=== PATIENT | female | born 1945 | race Caucasian/White ===

== ENCOUNTER → 2017-01-03 | Outpatient (CLI) | payer MEDICARE ==
--- NOTE | 2017-01-04 09:34 | MM ---
Reason for exam: screening (asymptomatic). Last mammogram was performed 1 year and 1 month ago. History: Patient is postmenopausal and has history of endometrial cancer at age 32. Took estrogen for 5 years beginning at age 53. Physical Findings: A clinical breast exam by your physician is recommended on an annual basis and results should be correlated with mammographic findings. MG Screening Mammo w CAD Bilateral CC and MLO view(s) were taken. Prior study comparison: December 04, 2015, bilateral MG screening mammo w CAD. August 27, 2014, bilateral MG diagnostic mammo w CAD RUBY. June 29, 2013, bilateral digital screening mammo w/CAD. The breast tissue is heterogeneously dense. This may lower the sensitivity of mammography. Finding: There are occasional typically benign round calcifications in both breasts. There is no discrete abnormality. ASSESSMENT: Benign, BI-RAD 2 RECOMMENDATION: Routine screening mammogram of both breasts in 1 year.
== END | disposition home or self-care (01) ==
LOC: RADMAMWWP 08:21
PROVIDERS: ATTEND Family Medicine
DX: Z12.31 Encounter for screening mammogram for malignant neoplasm of breast (principal)

== ENCOUNTER → 2018-01-04 | Outpatient (CLI) | payer MEDICARE ==
--- NOTE | 2018-01-06 07:58 | MM ---
Reason for exam: screening (asymptomatic). Last mammogram was performed 1 year ago. History: Patient is postmenopausal and has history of endometrial cancer at age 32. Took estrogen for 5 years beginning at age 53. Physical Findings: A clinical breast exam by your physician is recommended on an annual basis and results should be correlated with mammographic findings. MG Screening Mammo w CAD Bilateral CC and MLO view(s) were taken. Prior study comparison: January 03, 2017, bilateral MG screening mammo w CAD. December 04, 2015, bilateral MG screening mammo w CAD. The breast tissue is heterogeneously dense. This may lower the sensitivity of mammography. Finding: There is a 4 mm equal density (isodense), obscured round mass located 6 cm from the nipple in the inner quadrant, middle position of the left breast on CC view. New finding since January 03, 2017 and December 04, 2015. ASSESSMENT: Incomplete: need additional imaging evaluation, BI-RAD 0 RECOMMENDATION: Special view mammogram of the left breast. If lesion persists on supplemental views, image directed ultrasound is recommended. [facility] will attempt to contact patient to return for supplemental views and ultrasound if indicated.
== END | disposition home or self-care (01) ==
LOC: RADMAMWWP 09:58
PROVIDERS: ATTEND Family Medicine
DX: Z12.31 Encounter for screening mammogram for malignant neoplasm of breast (principal)
CPT/HCPCS: 77067

== ENCOUNTER → 2018-01-18 | Outpatient (CLI) | payer MEDICARE ==
--- NOTE | 2018-01-19 08:28 | MM ---
Reason for exam: additional evaluation requested from abnormal screening. Last mammogram was performed less than 1 month ago. History: Patient is postmenopausal and has history of endometrial cancer at age 32. Took estrogen for 5 years beginning at age 53. Physical Findings: Nurse did not find any significant physical abnormalities on exam. MG Work Up Mamm w CAD LT Spot compression CC and LM view(s) were taken of the left breast. Prior study comparison: January 04, 2018, bilateral MG screening mammo w CAD. January 03, 2017, bilateral MG screening mammo w CAD. December 04, 2015, bilateral MG screening mammo w CAD. Nodular area corresponds to skin lesion on repeat views. These results were verbally communicated with the patient and result sheet given to the patient on 01/18/18. ASSESSMENT: Benign, BI-RAD 2 RECOMMENDATION: Return to routine screening mammogram schedule for both breasts.
== END | disposition home or self-care (01) ==
LOC: RADMAMWWP 13:06
PROVIDERS: ATTEND Family Medicine
DX: R92.8 Other abnormal and inconclusive findings on diagnostic imaging of breast (principal)
CPT/HCPCS: 77065

== ENCOUNTER → 2019-02-02 | Outpatient (CLI) | payer MEDICARE ==
--- NOTE | 2019-02-07 08:53 | MM ---
Reason for exam: screening (asymptomatic). Last mammogram was performed 1 year ago. History: Patient is postmenopausal. Took estrogen for 5 years beginning at age 53. Physical Findings: A clinical breast exam by your physician is recommended on an annual basis and results should be correlated with mammographic findings. MG Screening Mammo w CAD Bilateral CC and MLO view(s) were taken. Prior study comparison: January 18, 2018, left breast MG work up mamm w CAD LT. January 04, 2018, bilateral MG screening mammo w CAD. The breast tissue is heterogeneously dense. This may lower the sensitivity of mammography. New central focal asymmetry right breast posterior depth. ASSESSMENT: Incomplete: need additional imaging evaluation, BI-RAD 0 RECOMMENDATION: Special view mammogram of the right breast. (3D) If lesion persists on supplemental views, image directed ultrasound is recommended. [facility] will attempt to contact patient to return for supplemental views and ultrasound if indicated.
== END | disposition home or self-care (01) ==
LOC: RADMAMWWP 11:59
PROVIDERS: ATTEND Family Medicine
DX: Z12.31 Encounter for screening mammogram for malignant neoplasm of breast (principal); Z80.3 Family history of malignant neoplasm of breast
CPT/HCPCS: 77067

== ENCOUNTER → 2019-02-22 | Outpatient (CLI) | payer MEDICARE ==
--- NOTE | 2019-02-22 11:27 | MM ---
Reason for exam: additional evaluation requested from abnormal screening. Last mammogram was performed 1 month ago. History: Patient is postmenopausal. Took estrogen for 5 years beginning at age 53. Physical Findings: Nurse did not find any significant physical abnormalities on exam. MG Work Up Mamm w CAD RT Spot compression CC, spot compression MLO, and LM view(s) were taken of the right breast. Prior study comparison: February 02, 2019, bilateral MG screening mammo w CAD. January 18, 2018, left breast MG work up mamm w CAD LT. There is no discrete abnormality including area of concern. These results were verbally communicated with the patient and result sheet given to the patient on 02/22/19. ASSESSMENT: Probably benign, BI-RAD 3 RECOMMENDATION: Follow-up diagnostic mammogram of the right breast in 6 months.
== END | disposition home or self-care (01) ==
LOC: RADMAMWWP 10:28
PROVIDERS: ATTEND Family Medicine
DX: R92.8 Other abnormal and inconclusive findings on diagnostic imaging of breast (principal)
CPT/HCPCS: 77065

== ENCOUNTER → 2020-04-23 | Outpatient (CLI) | payer MEDICARE ==
--- NOTE | 2020-04-24 09:27 | MM ---
Reason for exam: screening (asymptomatic). Last mammogram was performed 1 year and 2 months ago. History: Patient is postmenopausal. Took estrogen for 5 years beginning at age 53. Physical Findings: A clinical breast exam by your physician is recommended on an annual basis and results should be correlated with mammographic findings. MG Screening Mammo w CAD Bilateral CC and MLO view(s) were taken. Prior study comparison: February 22, 2019, right breast MG work up mamm w CAD RT. February 02, 2019, bilateral MG screening mammo w CAD. There are scattered fibroglandular densities. No significant changes when compared with prior studies. ASSESSMENT: Benign, BI-RAD 2 RECOMMENDATION: Routine screening mammogram of both breasts in 1 year.
== END | disposition home or self-care (01) ==
LOC: RADMAMWWP 16:37
PROVIDERS: ATTEND Family Medicine
DX: Z12.31 Encounter for screening mammogram for malignant neoplasm of breast (principal)
CPT/HCPCS: 77067

== ENCOUNTER → 2021-06-12 | Outpatient (CLI) | payer MEDICARE ==
--- NOTE | 2021-06-15 12:22 | MM ---
Reason for exam: screening (asymptomatic). Last mammogram was performed 1 year and 2 months ago. History: Patient is postmenopausal. Took estrogen for 5 years beginning at age 53. Physical Findings: A clinical breast exam by your physician is recommended on an annual basis and results should be correlated with mammographic findings. MG Screening Mammo w CAD Bilateral CC and MLO view(s) were taken. Prior study comparison: April 23, 2020, bilateral MG screening mammo w CAD. February 22, 2019, right breast MG work up mamm w CAD RT. The breast tissue is heterogeneously dense. This may lower the sensitivity of mammography. Finding #1: There are 6 mm equal density (isodense) masses in both breasts. Finding #2: There are calcifications in both breasts. ASSESSMENT: Incomplete: need additional imaging evaluation, BI-RAD 0 RECOMMENDATION: Special view mammogram of both breasts. If lesion persists on supplemental views, image directed ultrasound is recommended. [facility] will attempt to contact patient to return for supplemental views and ultrasound if indicated.
== END | disposition home or self-care (01) ==
LOC: RADMAMWWP 16:19
PROVIDERS: ATTEND Family Medicine
DX: Z12.31 Encounter for screening mammogram for malignant neoplasm of breast (principal); Z78.0 Asymptomatic menopausal state
CPT/HCPCS: 77067

== ENCOUNTER → 2021-06-19 | Outpatient (CLI) | payer MEDICARE ==
--- NOTE | 2021-06-22 09:26 | MM ---
Reason for exam: additional evaluation requested from abnormal screening. Last mammogram was performed less than 1 month ago. History: Patient is postmenopausal. Took estrogen for 5 years beginning at age 53. Physical Findings: Nurse did not find any significant physical abnormalities on exam. MG Work Up Mamm w CAD BILAT Bilateral spot compression CC and spot compression MLO view(s) were taken. LM view(s) were taken of the left breast. Prior study comparison: June 12, 2021, bilateral MG screening mammo w CAD. April 23, 2020, bilateral MG screening mammo w CAD. The breast tissue is heterogeneously dense. This may lower the sensitivity of mammography. No suspicious nodules on compression. These results were verbally communicated with the patient and result sheet given to the patient on 06/19/21. ASSESSMENT: Probably benign, BI-RAD 3 RECOMMENDATION: Follow-up diagnostic mammogram of both breasts in 6 months.
== END | disposition home or self-care (01) ==
LOC: RADMAMWWP 09:03
PROVIDERS: ATTEND Family Medicine
DX: R92.2 Inconclusive mammogram (principal); Z78.0 Asymptomatic menopausal state
CPT/HCPCS: 77066

== ENCOUNTER → 2022-01-04 | Outpatient (CLI) | payer MEDICARE ==
--- NOTE | 2022-01-04 11:46 | MM ---
Reason for Exam: Follow-up at short interval from prior study. Last screening mammogram was performed 7 month(s) ago. Patient History: Menarche at age 15. First Full-Term at age 23. Hysterectomy at age 32. Postmenopausal. Estrogen for 5 years from age 53 until age 59. Risk Values: Kathleen 5 year model risk: 1.6%. NCI Lifetime model risk: 3.7%. Prior Study Comparison: 04/23/2020 Bilateral Screening Mammogram, [facility]. 06/12/2021 Bilateral Screening Mammogram, [facility]. 06/19/2021 Bilateral Diagnostic Mammogram, [facility]. Tissue Density: There are scattered fibroglandular densities. Findings: Analyzed By CAD. The previous focal asymmetry centrally in the right breast is no longer well seen. This suggests a benign etiology. There is increased vague density along the outer aspect of the right breast. Upon further questioning, the patient reports injury to the lateral aspect of the right breast approximately a month ago with some associated bruising. This suggests a posttraumatic etiology for this increase in density. Reassess in 3 months. Otherwise, no significant change. Overall Assessment: Probably benign, BI-RAD 3 Management: Diagnostic Mammogram of the right breast in 3 months. 1. For suspected posttraumatic increased vague density probably reflecting parenchymal bruising laterally. 2. Patient should continue monthly self breast exams. A clinical breast exam by your physician is recommended on an annual basis. 3. This exam should not preclude additional follow-up of suspicious palpable abnormalities. Results were given to the patient verbally at the time of exam. Electronically signed and approved by: Feli Sidhu M.D. Radiologist
== END | disposition home or self-care (01) ==
LOC: RADMAMWWP 11:01
PROVIDERS: ATTEND Family Medicine
DX: R92.8 Other abnormal and inconclusive findings on diagnostic imaging of breast (principal); Z78.0 Asymptomatic menopausal state
CPT/HCPCS: 77066

== ENCOUNTER → 2022-08-02 | Day surgery (SDC) | payer MEDICARE ==
--- NOTE | 2022-08-04 09:30 | MM ---
Risk Values: Kathleen 5 year model risk: 1.6%. NCI Lifetime model risk: 3.4%. Prior Study Comparison: 06/19/2021 Bilateral Diagnostic Mammogram, [facility]. 01/04/2022 Bilateral MG diagnostic mammo w CAD RUBY, [facility]. 07/20/2022 Bilateral MG diagnostic mammo w CAD RUBY, [facility]. Pathology Description: Location: upper outer quadrant, posterior. Marker Left Behind. Specimen Radiograph. Approach: Lateral to Medial Needle Type: Eviva Cores: 11 Skin Nicks: 1 Gauge: 9 The procedure of stereotactic guided core biopsy was explained to the patient. Benefits, alternatives, and risks were discussed. An informed consent was then obtained. The shortness pathway for biopsy was chosen. Shortness pathway was lateral to medial approach. I performed then performed the remainder of the procedure. Overlying skin was cleansed with Betadine. Lidocaine is used as anesthetic into the skin and deeper tissue. A vacuum assisted biopsy gun was used to obtain multiple core samples. The patient tolerated the procedure well without any immediate complication. The patient was kept in the radiology department for short stay after the procedure and then discharged home in stable condition. Targeted calcifications are identified in specimen mammogram. Post biopsy mammogram shows the clip to appear in satisfactory position relative to the targeted area of concern on the preprocedure images. Impression: SUCCESSFUL, UNCOMPLICATED STEREOTACTIC GUIDED CORE BIOPSY OF AREA OF CONCERN IN THE LEFT BREAST. PATHOLOGY STATUS: Results pending Intermediate index of suspicion noted at time of procedure. Pathology Results: Result: High risk, Intraductual papilloma high risk. LEFT BREAST, STEREOTACTIC NEEDLE CORE BIOPSY: Intraductal papilloma with microcalcifications and background fibrocystic changes. Overall Assessment: High risk Management: Open Biopsy of the left breast. Electronically signed and approved by: Bam Packer M.D.
== END ==
LOC: RADMAMWWP 10:12
PROVIDERS: ATTEND Family Medicine
DX: D24.2 Benign neoplasm of left breast (principal); R92.8 Other abnormal and inconclusive findings on diagnostic imaging of breast; N60.12 Diffuse cystic mastopathy of left breast
CPT/HCPCS: 88305; 19081; A4648

== ENCOUNTER → 2022-08-27 | Outpatient (CLI) | payer MEDICARE ==
[2022-08-27 13:32] VITALS: BP 167/89; PULSE 81; RESP 16; TEMP 98.1
--- NOTE | 2022-08-27 14:02 | P.GSHP ---
History of Present Illness H&P Date: 08/27/22 Chief Complaint: Intraductal papilloma left breast Alena is a 77-year-old white female seen in consultation for Jesse Rayo regarding a core biopsy of the left breast which revealed an intraductal papilloma. [place] [id number]. This revealed increasing microcalcifications in the upper outer aspect of the left breast. Stereotactic core biopsy was recommended. This was performed on [id number]. Pathology revealed an intraductal papilloma with microcalcifications. No other lesions of concern were noted. The radiographs personally reviewed with Dr. Cox. It was felt that the clip was in the correct location. The pa tient did not feel any lumps masses or nodules of concern in either breast. This was found on a routine screening mammogram. She has never had any surgery on her breast prior to this. She has not had any recent trauma or infection in the breast. Caffiene: 1 cup/day nicotine: none chocolate:daily BCP: none hormones: 5 years at menopause Family History: none cancer Hormonal History: menarche: 16 , breast fed: yes, age at first : 21 menopause: hysterectomy at 31, done for atypical cells left ovaries Surgical History: hysterectomy tonsil Medical History: high cholesterol Social History: nicotine: none alcohol: none drugs:none - Constitutional Constitutional: Denies chills, Denies fever - EENT Eyes: denies blurred vision, denies pain Ears: deny: decreased hearing, tinnitus Ears, nose, mouth and throat: Denies headache, Denies sore throat - Breasts Breasts: bilateral: as per HPI - Cardiovascular Cardiovascular: Denies chest pain, Denies shortness of breath - Respiratory Respiratory: Denies cough, Denies 7 - Gastrointestinal Gastrointestinal: Denies abdominal pain, Denies diarrhea, Denies nausea, Denies vomiting - Genitourinary (Female) Genitourinary: Denies dysuria, Denies hematuria - Menstruation Menstruation: Reports post hysterectomy - Musculoskeletal Musculoskeletal: Denies myalgias - Integumentary Integumentary: Reports pruritus, Denies rash - Neurological Neurological: Denies numbness, Denies weakness - Psychiatric Psychiatric: Denies anxiety, Denies depression - Endocrine Endocrine: Denies fatigue, Denies weight change - Hematologic/Lymphatic Comment: none - Allergic/Immunologic Allergic/Immunologic: Reports seasonal allergies Past Medical History Past Medical History: Hyperlipidemia Additional Past Medical History / Comment(s): enviromental allergies. Left breast "cyst" removed from inner upper aspect of breast, performed in office History of Any Multi-Drug Resistant Organisms: None Reported Past Surgical History: Hysterectomy, Tonsillectomy Past Anesthesia/Blood Transfusion Reactions: No Reported Reaction Past Psychological History: No Psychological Hx Reported Smoking Status: Never smoker Past Alcohol Use History: None Reported Past Drug Use History: None Reported Medications and Allergies Home Medications Medication Instructions Recorded Confirmed Type Simvastatin [Zocor] 10 mg PO HS 07/21/22 08/27/22 History Allergies Allergy/AdvReac Type Severity Reaction Status Date / Time No Known Allergies Allergy Verified 08/27/22 13:30 Surgical - Exam Vital Signs Temp Pulse Resp BP Pulse Ox 98.1 F 81 16 167/89 98 08/27/22 13:30 08/27/22 13:30 08/27/22 13:30 08/27/22 13:30 08/27/22 13:30 - General no distress - Eyes normal ocular movement - Neck trachea midline - Respiratory normal respiratory effort, clear to auscultation - Cardiovascular Rhythm: regular Heart Sounds: normal: S1, S2 - Abdomen Abdomen: soft, non tender, no guarding, no rigid, no rebound - Integumentary normal turgor - Neurologic no disoriented, no combative - Musculoskeletal normal gait - Psychiatric oriented to time, oriented to person, oriented to place, speech is normal, memory intact Breast Exam: BRA: 32B Inspection: Bilateral grade 2 ptosis Palpation: Bypass: Multiple positional exam fibrocystic changes no dominant masses or nodules of concern Right axilla: No adenopathy of concern Left breast: Multi-positional exam fibrocystic changes biopsy site clean and dry no evidence of infection or hematoma no dominant masses or nodules of concern Left axilla: No adenopathy of concern Results Mammogram personally reviewed with Dr. Cox Assessment and Plan Assessment: Impression: Stereotactic core biopsy left breast intraductal papilloma Fibrocystic breast changes High cholesterol Plan: needle localization left breast lumpectomy for intraductal papilloma, possible onco-plastic tissue transfer CC: Amisha Rayo
== END ==
LOC: WWCWWP 13:20
PROVIDERS: ATTEND Surgery
DX: N60.12 Diffuse cystic mastopathy of left breast (principal); E78.00 Pure hypercholesterolemia, unspecified; Z90.710 Acquired absence of both cervix and uterus; E78.5 Hyperlipidemia, unspecified

== ENCOUNTER → 2022-11-11 | Outpatient (CLI) | payer MEDICARE ==
[2022-11-11 14:36] VITALS: BP 184/80; PULSE 72; RESP 17; TEMP 98.3
--- NOTE | 2022-11-11 14:54 | P.PN ---
Subjective Progress Note Date: 11/11/22 Principal diagnosis: left breast intraductal papilloma Intraductal papilloma left breast Alena is a 77-year-old white female seen in consultation for Paola Rayo regarding a core biopsy of the left breast which revealed an intraductal papilloma. She underwent a bilateral diagnostic mammogram on . This revealed increasing microcalcifications in the upper outer aspect of the left breast. Stereotactic core biopsy was recommended. This was performed on . Pathology revealed an intraductal papilloma with microcalcifications. No other lesions of concern were noted. The radiographs personally reviewed with Dr. Cox. It was felt that the clip was in the correct location. The patient did not feel any lumps masses or nodules of concern in either breast. This was found on a routine screening mammogram. She has never had any surgery on her breast prior to this. She has not had any recent trauma or infection in the breast. Caffiene: 1 cup/day nicotine: none chocolate:daily BCP: none hormones: 5 years at menopause Family History: none cancer Hormonal History: menarche: 16 , breast fed: yes, age at first : 21 menopause: hysterectomy at 31, done for atypical cells left ovaries Surgical History: hysterectomy tonsil Medical History: high cholesterol Social History: nicotine: none alcohol: none drugs:none - Constitutional Constitutional: Denies chills, Denies fever - EENT Eyes: denies blurred vision, denies pain Ears: deny: decreased hearing, tinnitus Ears, nose, mouth and throat: Denies headache, Denies sore throat - Breasts Breasts: bilateral: as per HPI - Cardiovascular Cardiovascular: Denies chest pain, Denies shortness of breath - Respiratory Respiratory: Denies cough - Gastrointestinal Gastrointestinal: Denies abdominal pain, Denies diarrhea, Denies nausea, Denies vomiting - Genitourinary (Female) Genitourinary: Denies dysuria, Denies hematuria - Menstruation Menstruation: Reports post hysterectomy - Musculoskeletal Musculoskeletal: Denies myalgias - Integumentary Integumentary: Reports pruritus, Denies rash - Neurological Neurological: Denies numbness, Denies weakness - Psychiatric Psychiatric: Denies anxiety, Denies depression - Endocrine Endocrine: Denies fatigue, Denies weight change - Hematologic/Lymphatic Comment: none - Allergic/Immunologic Allergic/Immunologic: Reports seasonal allergies Past Medical History Past Medical History: Hyperlipidemia Additional Past Medical History / Comment(s): enviromental allergies. Left breast "cyst" removed from inner upper aspect of breast, performed in office History of Any Multi-Drug Resistant Organisms: None Reported Past Surgical History: Hysterectomy, Tonsillectomy Past Anesthesia/Blood Transfusion Reactions: No Reported Reaction Past Psychological History: No Psychological Hx Reported Smoking Status: Never smoker Past Alcohol Use History: None Reported Past Drug Use History: None Reported Medications and Allergies Home Medications Medication Instructions Recorded Confirmed Type Simvastatin [Zocor] 10 mg PO HS 07/21/22 08/27/22 History Allergies Allergy/AdvReac Type Severity Reaction Status Date / Time No Known Allergies Allergy Verified 08/27/22 13:30 Objective - Vital Signs Vital signs: Vital Signs Temp 98.3 F 11/11/22 14:33 Pulse 72 11/11/22 14:33 Resp 17 11/11/22 14:33 BP 184/80 11/11/22 14:33 Pulse Ox 98 11/11/22 14:33 FiO2 Intake & Output 11/10/22 11/11/22 11/11/22 18:59 06:59 18:59 Weight 60.328 kg - Constitutional General appearance: Present: cooperative - EENT Eyes: Present: EOMI ENT: Present: hearing grossly normal - Neck Neck: Present: normal ROM - Respiratory Respiratory: bilateral: CTA - Cardiovascular Heart sounds: normal: S1, S2 - Gastrointestinal General gastrointestinal: Present: soft - Integumentary Integumentary: Present: normal turgor - Musculoskeletal Musculoskeletal: Present: gait normal - Psychiatric Psychiatric: Present: A&O x's 3, appropriate affect, intact judgment & insight - Additional findings Additional findings: Breast Exam: BRA: 32B Inspection: Bilateral grade 2 ptosis Palpation: Bypass: Multiple positional exam fibrocystic changes no dominant masses or nodules of concern Right axilla: No adenopathy of concern Left breast: Multi-positional exam fibrocystic changes Left axilla: No adenopathy of concern Assessment and Plan Assessment: Impression: Stereotactic core biopsy left breast intraductal papilloma Fibrocystic breast changes High cholesterol Plan: needle localization left breast lumpectomy for intraductal papilloma, possible left breast onco-plastic tissue transfer Risk and benefits of the procedure were discussed with the patient. Risks include but are not limited to bleeding, infection, reaction to the anesthetic. If the biopsy specimen is discordance possible further tissue acquisition may be necessary. The patient understands and wishes to proceed. CC: Amisha Rayo
== END ==
LOC: WWCWWP 14:17
PROVIDERS: ATTEND Surgery
DX: N60.12 Diffuse cystic mastopathy of left breast (principal); E78.5 Hyperlipidemia, unspecified; E78.00 Pure hypercholesterolemia, unspecified; N60.11 Diffuse cystic mastopathy of right breast

== ENCOUNTER → 2023-01-06 | Outpatient (CLI) | payer MEDICARE ==
--- NOTE | 2023-01-06 09:50 | P.PN ---
Subjective Progress Note Date: 01/06/23 Principal diagnosis: left breast intraductal papilloma Intraductal papilloma left breast Alena is a 77-year-old white female seen in consultation for Paola Rayo regarding a core biopsy of the left breast which revealed an intraductal papilloma. She underwent a bilateral diagnostic mammogram on . This revealed increasing microcalcifications in the upper outer aspect of the left breast. Stereotactic core biopsy was recommended. This was performed on . Pathology revealed an intraductal papilloma with microcalcifications. No other lesions of concern were noted. The radiographs personally reviewed with Dr. Cox. It was felt that the clip was in the correct location. The patient did not feel any lumps masses or nodules of concern in either breast. This was found on a routine screening mammogram. She has never had any surgery on her breast prior to this. She has not had any recent trauma or infection in the breast. Caffiene: 1 cup/day nicotine: none chocolate:daily BCP: none hormones: 5 years at menopause Family History: none cancer Hormonal History: menarche: 16 , breast fed: yes, age at first : 21 menopause: hysterectomy at 31, done for atypical cells left ovaries Surgical History: hysterectomy tonsil Medical History: high cholesterol Social History: nicotine: none alcohol: none drugs:none - Constitutional Constitutional: Denies chills, Denies fever - EENT Eyes: denies blurred vision, denies pain Ears: deny: decreased hearing, tinnitus Ears, nose, mouth and throat: Denies headache, Denies sore throat - Breasts Breasts: bilateral: as per HPI - Cardiovascular Cardiovascular: Denies chest pain, Denies shortness of breath - Respiratory Respiratory: Denies cough - Gastrointestinal Gastrointestinal: Denies abdominal pain, Denies diarrhea, Denies nausea, Denies vomiting - Genitourinary (Female) Genitourinary: Denies dysuria, Denies hematuria - Menstruation Menstruation: Reports post hysterectomy - Musculoskeletal Musculoskeletal: Denies myalgias - Integumentary Integumentary: Reports pruritus, Denies rash - Neurological Neurological: Denies numbness, Denies weakness - Psychiatric Psychiatric: Denies anxiety, Denies depression - Endocrine Endocrine: Denies fatigue, Denies weight change - Hematologic/Lymphatic Comment: none - Allergic/Immunologic Allergic/Immunologic: Reports seasonal allergies Past Medical History Past Medical History: Hyperlipidemia Additional Past Medical History / Comment(s): enviromental allergies. Left breast "cyst" removed from inner upper aspect of breast, performed in office History of Any Multi-Drug Resistant Organisms: None Reported Past Surgical History: Hysterectomy, Tonsillectomy Past Anesthesia/Blood Transfusion Reactions: No Reported Reaction Past Psychological History: No Psychological Hx Reported Smoking Status: Never smoker Past Alcohol Use History: None Reported Past Drug Use History: None Reported Medications and Allergies Home Medications Medication Instructions Recorded Confirmed Type Simvastatin [Zocor] 10 mg PO HS 07/21/22 08/27/22 History Allergies Allergy/AdvReac Type Severity Reaction Status Date / Time No Known Allergies Allergy Verified 08/27/22 13:30 Objective - Constitutional General appearance: Present: cooperative - EENT Eyes: Present: EOMI ENT: Present: hearing grossly normal - Neck Neck: Present: normal ROM - Respiratory Respiratory: bilateral: CTA - Cardiovascular Rhythm: regular Heart sounds: normal: S1, S2 - Gastrointestinal General gastrointestinal: Present: soft - Integumentary Integumentary: Present: normal turgor - Musculoskeletal Musculoskeletal: Present: gait normal - Psychiatric Psychiatric: Present: A&O x's 3, appropriate affect, intact judgment & insight - Additional findings Additional findings: Breast Exam: BRA: 32B Inspection: Bilateral grade 2 ptosis Palpation: Bypass: Multiple positional exam fibrocystic changes no dominant masses or nodules of concern Right axilla: No adenopathy of concern Left breast: Multi-positional exam fibrocystic changes Left axilla: No adenopathy of concern Assessment and Plan Assessment: Impression: Stereotactic core biopsy left breast intraductal papilloma Fibrocystic breast changes High cholesterol Plan: needle localization left breast lumpectomy for intraductal papilloma, possible left breast onco-plastic tissue transfer Risk and benefits of the procedure were discussed with the patient. Risks include but are not limited to bleeding, infection, reaction to the anesthetic. If the biopsy specimen is discordance possible further tissue acquisition may be necessary. The patient understands and wishes to proceed. CC: Amisha Rayo
[2023-01-06 09:51] VITALS: BP 154/75; PULSE 84; RESP 17; TEMP 98.3
== END ==
LOC: WWCWWP 09:35
PROVIDERS: ATTEND Surgery
DX: N60.12 Diffuse cystic mastopathy of left breast (principal); E78.00 Pure hypercholesterolemia, unspecified; Z91.048 Other nonmedicinal substance allergy status

== ENCOUNTER → 2023-01-14 | Outpatient (CLI) | payer MEDICARE ==
--- NOTE | 2023-01-14 15:48 | P.PN ---
Progress Note - Text Progress Note Date: 01/14/23 Alena is status post left breast excision of intraductal papilloma on 01-11-23. Her pathology was intraductal papilloma. She tolerated the procedure without difficulty. Exam: Lungs: Clear Heart: Regular rate and rhythm Incision: Clean and dry Impression: Patient doing well postoperative Plan: Bilateral mammogram July with physician exam at that time CC: Amisha Rayo
== END ==
LOC: WWCWWP 15:36
PROVIDERS: ATTEND Surgery
DX: D24.2 Benign neoplasm of left breast (principal); Z91.09 Other allergy status, other than to drugs and biological substances

== ENCOUNTER → 2023-08-04 | Outpatient (CLI) | payer MEDICARE ==
--- NOTE | 2023-08-04 14:16 | USB ---
Reason for Exam: Additional evaluation requested from abnormal screening. Patient History: Menarche at age 15. First Full-Term at age 23. Hysterectomy at age 32. Postmenopausal. Patient has history of breast feeding. Previous Hyperplasia w/o Atypia at age 77. Estrogen for 5 years from age 53 until age 59. 01/11/2023, Benign MG pre op needle loc LT on the left side. 08/02/2022, High risk MG stereo VAD BX LT on the left side. Risk Values: Kathleen 5 year model risk: 2.4%. NCI Lifetime model risk: 4.8%. Technique: Method: Targeted. Prior Study Comparison: 06/19/2021 Bilateral Diagnostic Mammogram, [facility]. 01/04/2022 Bilateral MG diagnostic mammo w CAD RUBY, [facility]. 07/20/2022 Bilateral MG diagnostic mammo w CAD RUBY, [facility]. Findings: The upper outer quadrant of the right breast, the axilla of the right breast and the retroareolar of the right breast were scanned. Targeted ultrasound upper outer quadrant right breast 9:00 to 12:00 including scanning of the subareolar region and axilla. There are approximately 3 tiny oil cysts measuring up to 4 mm at the 9 and 10:00 position. Given this finding, the mammographic calcifications may relate to dystrophic calcifications or early fat necrosis and short interval follow-up is recommended. Overall Assessment: Probably benign, BI-RAD 3 Management: Diagnostic Mammogram of the right breast in 6 months. A clinical breast exam by your physician is recommended on an annual basis and results should be correlated with mammographic findings. This exam should not preclude additional follow-up of suspicious palpable abnormalities. Results were given to the patient verbally at the time of exam. Electronically signed and approved by: Feli Sidhu M.D. Radiologist
--- NOTE | 2023-08-04 14:26 | MM ---
Reason for Exam: Follow-up at short interval from prior study. Last screening mammogram was performed 12 month(s) ago. Patient History: Menarche at age 15. First Full-Term at age 23. Hysterectomy at age 32. Postmenopausal. Patient has history of breast feeding. Previous Hyperplasia w/o Atypia at age 77. Estrogen for 5 years from age 53 until age 59. 01/11/2023, Benign MG pre op needle loc LT on the left side. 08/02/2022, High risk MG stereo VAD BX LT on the left side. Risk Values: Kathleen 5 year model risk: 2.4%. NCI Lifetime model risk: 4.8%. Prior Study Comparison: 04/23/2020 Bilateral Screening Mammogram, [facility]. 06/12/2021 Bilateral Screening Mammogram, [facility]. 06/19/2021 Bilateral Diagnostic Mammogram, [facility]. 01/04/2022 Bilateral MG diagnostic mammo w CAD RUBY, [facility]. 07/20/2022 Bilateral MG diagnostic mammo w CAD RUBY, [facility]. Tissue Density: There are scattered fibroglandular densities. Findings: Analyzed By CAD. Postexcisional changes on the left. New/increased round and punctate regional calcifications throughout the upper outer quadrant of the right breast. On 3-D images, subtle underlying, noncalcified oil cysts are suggested on the prior exam. Otherwise, no significant change. Further ultrasound assessment of the right upper outer quadrant. Overall Assessment: Incomplete: need additional imaging evaluation, BI-RAD 0 Management: Diagnostic Breast Ultrasound of the right breast. Electronically signed and approved by: Feli Sidhu M.D. Radiologist
--- NOTE | 2023-08-04 14:43 | P.PN ---
Subjective Progress Note Date: 08/04/23 Principal diagnosis: intraductal papilloma left breast intraductal papilloma Alena is a 78-year-old white female seen in consultation for Paola Rayo regarding a core biopsy of the left breast which revealed an intraductal papilloma. She underwent a bilateral diagnostic mammogram on . This revealed increasing microcalcifications in the upper outer aspect of the left breast. Stereotactic core biopsy was recommended. This was performed on . Pathology revealed an intraductal papilloma with microcalcifications. No other lesions of concern were noted. The radiographs personally reviewed with Dr. Cox. It was felt that the clip was in the c orrect location. The patient did not feel any lumps masses or nodules of concern in either breast. This was found on a routine screening mammogram. She has never had any surgery on her breast prior to this. She has not had any recent trauma or infection in the breast. The patient on 01-11-23 underwent excision of the site and it was an intraductal papilloma. She is not complaining of any new lumps masses or nodules of concern in either breast. Bilateral mammogram on 08-04-23 BIRAD 3, repeat right breast mammogram in 6 months Caffiene: 1 cup/day nicotine: none chocolate:daily BCP: none hormones: 5 years at menopause Family History: none cancer Hormonal History: menarche: 16 , breast fed: yes, age at first : 21 menopause: hysterectomy at 31, done for atypical cells left ovaries Surgical History: hysterectomy tonsil Medical History: high cholesterol Social History: nicotine: none alcohol: none drugs:none - Constitutional Constitutional: Denies chills, Denies fever - EENT Eyes: denies blurred vision, denies pain Ears: deny: decreased hearing, tinnitus Ears, nose, mouth and throat: Denies headache, Denies sore throat - Breasts Breasts: bilateral: as per HPI - Cardiovascular Cardiovascular: Denies chest pain, Denies shortness of breath - Respiratory Respiratory: Denies cough - Gastrointestinal Gastrointestinal: Denies abdominal pain, Denies diarrhea, Denies nausea, Denies vomiting - Genitourinary (Female) Genitourinary: Denies dysuria, Denies hematuria - Menstruation Menstruation: Reports post hysterectomy - Musculoskeletal Musculoskeletal: Denies myalgias - Integumentary Integumentary: Reports pruritus, Denies rash - Neurological Neurological: Denies numbness, Denies weakness - Psychiatric Psychiatric: Denies anxiety, Denies depression - Endocrine Endocrine: Denies fatigue, Denies weight change - Hematologic/Lymphatic Comment: none - Allergic/Immunologic Allergic/Immunologic: Reports seasonal allergies Past Medical History Past Medical History: Hyperlipidemia Additional Past Medical History / Comment(s): enviromental allergies. Left breast "cyst" removed from inner upper aspect of breast, performed in office History of Any Multi-Drug Resistant Organisms: None Reported Past Surgical History: Hysterectomy, Tonsillectomy Past Anesthesia/Blood Transfusion Reactions: No Reported Reaction Past Psychological History: No Psychological Hx Reported Smoking Status: Never smoker Past Alcohol Use History: None Reported Past Drug Use History: None Reported Medications and Allergies Home Medications Medication Instructions Recorded Confirmed Type Simvastatin [Zocor] 10 mg PO HS 07/21/22 08/27/22 History Allergies Allergy/AdvReac Type Severity Reaction Status Date / Time No Known Allergies Allergy Verified 08/27/22 13:30 Objective - Constitutional General appearance: Present: cooperative - EENT Eyes: Present: EOMI ENT: Present: hearing grossly normal - Neck Neck: Present: normal ROM - Respiratory Respiratory: bilateral: CTA - Cardiovascular Heart sounds: normal: S1, S2 - Integumentary Integumentary: Present: normal turgor - Musculoskeletal Musculoskeletal: Present: gait normal - Psychiatric Psychiatric: Present: A&O x's 3, appropriate affect, intact judgment & insight - Additional findings Additional findings: Breast Exam: BRA: 32B Inspection: Bilateral grade 2 ptosis Palpation: Bypass: Multi positional exam fibrocystic changes no dominant masses or nodules of concern Right axilla: No adenopathy of concern Left breast: Multi-positional exam fibrocystic changes; well healed scar left breast Left axilla: No adenopathy of concern Assessment and Plan Assessment: Impression: Stereotactic core biopsy left breast intraductal papilloma; resection 01-11-23 Fibrocystic breast changes High cholesterol bilateral mammogram 08-04-23 BIRAD 3; repeat right breast mammogram in 6 months personally reveiwed Plan: right breast mammogram in 6 months with appointment Bilateral mammogram CC: Amisha Rayo
== END | disposition home or self-care (01) ==
LOC: RADMAMWWP 13:08
PROVIDERS: ATTEND Surgery
DX: N60.11 Diffuse cystic mastopathy of right breast (principal); R92.323 Mammographic fibroglandular density, bilateral breasts; R92.1 Mammographic calcification found on diagnostic imaging of breast; Z78.0 Asymptomatic menopausal state
CPT/HCPCS: 77066; 76642; G0279; 77062

== ENCOUNTER → 2023-08-04 | Outpatient (CLI) | payer MEDICARE ==
[2023-08-04 14:57] VITALS: BP 167/90; PULSE 94; RESP 15; TEMP 98.3
== END ==
LOC: WWCWWP 13:07
PROVIDERS: ATTEND Surgery
DX: R92.8 Other abnormal and inconclusive findings on diagnostic imaging of breast (principal); D24.2 Benign neoplasm of left breast; N60.11 Diffuse cystic mastopathy of right breast; N60.12 Diffuse cystic mastopathy of left breast; E78.00 Pure hypercholesterolemia, unspecified; Z91.09 Other allergy status, other than to drugs and biological substances

== ENCOUNTER → 2024-02-29 | Outpatient (CLI) | payer MEDICARE ==
--- NOTE | 2024-02-29 11:21 | MM ---
Reason for Exam: Follow-up at short interval from prior study. Last screening mammogram was performed 7 month(s) ago. Patient History: Menarche at age 15. First Full-Term at age 23. Hysterectomy at age 32. Postmenopausal. Patient has history of breast feeding. Previous Hyperplasia w/o Atypia at age 77. Estrogen for 5 years from age 53 until age 59. 01/11/2023, Benign MG pre op needle loc LT on the left side. 08/02/2022, High risk MG stereo VAD BX LT on the left side. Risk Values: Kathleen 5 year model risk: 2.4%. NCI Lifetime model risk: 4.8%. Prior Study Comparison: 01/04/2022 Bilateral MG diagnostic mammo w CAD RUBY, [facility]. 07/20/2022 Bilateral MG diagnostic mammo w CAD RUBY, [facility]. 08/04/2023 Bilateral MG 3D diag mammo w/cad RUBY, [facility]. Tissue Density: Right: The breasts are heterogeneously dense, which may obscure small masses. Findings: Analyzed By CAD. The pattern is stable There are increasing numbers of small round calcifications upper outer quadrant right breast. Recommend stereotactic core biopsy for a visitor services representative sampling of this area. Overall Assessment: Suspicious, BI-RAD 4 Management: Stereotactic Core Biopsy of the right breast. A negative mammogram report should not preclude additional follow up of suspicious palpable abnormalities. Patient should continue monthly self breast exam. A clinical breast exam by your physician is recommended on an annual basis and results should be correlated with mammographic findings. Note on Kathleen scores and lifetime risk: 1. A Kathleen score greater than 3% is considered moderate risk. If this is the case, consider specialist referral to assess eligibility for a risk reducing agent. 2. If overall lifetime risk for the development of breast cancer is 20% or higher, the patient may qualify for future screening with alternating mammogram and breast MRI. [facility], , 02/29/2024 11:18 AM. Electronically signed and approved by: Haroon Patterson D.O. Radiologis
== END | disposition home or self-care (01) ==
LOC: RADMAMWWP 10:44
PROVIDERS: ATTEND Surgery
DX: R92.8 Other abnormal and inconclusive findings on diagnostic imaging of breast
CPT/HCPCS: 77061; 77065

== ENCOUNTER → 2024-03-15 | Day surgery (SDC) | payer MEDICARE ==
[~2024-03-15] MED LIST: ALPRAZolam 0.25 MG TAB PO PRN
[2024-03-15 07:53] VITALS: BP 146/76; PULSE 90; RESP 16; TEMP 98
--- NOTE | 2024-03-15 08:18 | P.PN ---
Subjective Progress Note Date: 03/15/24 Principal diagnosis: Abnormal right breast mammogram 03-15-24 Principal diagnosis: left breast intraductal papilloma/high risk lesion abnormal right breast mammogram Alena is a 78-year-old female who underwent a left breast needle localization and resection of a lesion of concern on 08-02-2022. Initially the area was sampled with a stereotactic core biopsy. Upon resection the pathology revealed an intraductal papilloma with microcalcifications. The patient had a bilateral mammogram on 08-04-2023 which was BI-RADS 3. A repeat right breast mammogram in 6 months was recommended. The patient had a repeat right breast m ammogram on 02-29-2024. This was personally reviewed and discussed with Dr. Rosanna Ortega from radiology. There were increasing microcalcifications in the right breast in the upper outer quadrant and a stereotactic core biopsy was recommended. Patient herself is not complaining of any new lumps masses or nodules of concern in either breast. Caffiene: 1 cup/day nicotine: none chocolate:daily BCP: none hormones: 5 years at menopause Family History: none cancer Hormonal History: menarche: 16 , breast fed: yes, age at first : 21 menopause: hysterectomy at 31, done for atypical cells left ovaries Surgical History: hysterectomy tonsil left breast open biopsy 2022 Medical History: high cholesterol Social History: nicotine: none alcohol: none drugs:none - Constitutional Constitutional: Denies chills, Denies fever - EENT Eyes: denies blurred vision, denies pain Ears: deny: decreased hearing, tinnitus Ears, nose, mouth and throat: Denies headache, Denies sore throat - Breasts Breasts: bilateral: as per HPI - Cardiovascular Cardiovascular: Denies chest pain, Denies shortness of breath - Respiratory Respiratory: Denies cough - Gastrointestinal Gastrointestinal: Denies abdominal pain, Denies diarrhea, Denies nausea, Denies vomiting - Genitourinary (Female) Genitourinary: Denies dysuria, Denies hematuria - Menstruation Menstruation: Reports post hysterectomy - Musculoskeletal Musculoskeletal: Denies myalgias - Integumentary Integumentary: Reports pruritus, Denies rash - Neurological Neurological: Denies numbness, Denies weakness - Psychiatric Psychiatric: Denies anxiety, Denies depression - Endocrine Endocrine: Denies fatigue, Denies weight change - Hematologic/Lymphatic Comment: none - Allergic/Immunologic Allergic/Immunologic: Reports seasonal allergies Past Medical History Past Medical History: Hyperlipidemia Additional Past Medical History / Comment(s): enviromental allergies. Left breast "cyst" removed from inner upper aspect of breast, performed in office History of Any Multi-Drug Resistant Organisms: None Reported Past Surgical History: Hysterectomy, Tonsillectomy Past Anesthesia/Blood Transfusion Reactions: No Reported Reaction Past Psychological History: No Psychological Hx Reported Smoking Status: Never smoker Past Alcohol Use History: None Reported Past Drug Use History: None Reported Medications and Allergies Home Medications Medication Instructions Recorded Confirmed Type Simvastatin [Zocor] 10 mg PO HS 07/21/22 08/27/22 History Allergies Allergy/AdvReac Type Severity Reaction Status Date / Time No Known Allergies Allergy Verified 08/27/22 13:30 Objective - Vital Signs Vital signs: Vital Signs Temp 98.0 F 03/15/24 07:47 Pulse 90 03/15/24 07:47 Resp 16 03/15/24 07:47 BP 146/76 03/15/24 07:47 Pulse Ox FiO2 Intake & Output 03/14/24 03/15/24 03/15/24 18:59 06:59 18:59 Weight 61.235 kg - Constitutional General appearance: Present: cooperative - EENT Eyes: Present: EOMI ENT: Present: hearing grossly normal - Neck Neck: Present: normal ROM - Respiratory Respiratory: bilateral: CTA - Cardiovascular Heart sounds: normal: S1, S2 - Integumentary Integumentary: Present: normal turgor - Musculoskeletal Musculoskeletal: Present: gait normal - Psychiatric Psychiatric: Present: A&O x's 3, appropriate affect, intact judgment & insight - Additional findings Additional findings: Breast Exam: BRA: 32B Inspection: Bilateral grade 2 ptosis Palpation: Bypass: Multi positional exam fibrocystic changes no dominant masses or nodules of concern Right axilla: No adenopathy of concern Left breast: Multi-positional exam fibrocystic changes; well healed scar left breast Left axilla: No adenopathy of concern Assessment and Plan Assessment: Impression: Stereotactic core biopsy left breast intraductal papilloma; resection 01-11-23 Fibrocystic breast changes High cholesterol bilateral mammogram 08-04-23 BIRAD 3; repeat right breast mammogram in 6 months, repeat right breast mammogram 02-29-2024 revealed increasing numbers of small round calcifications upper outer quadrant right breast this was considered suspicious BI-RADS 4 and recommended for a stereotactic core biopsy this was personally reviewed and discussed with the radiologist WILMA Bailon Plan: Right breast stereotactic core biopsy Risk and benefits of stereotactic core biopsy were discussed with the patient. Risk include but are not limited to bleeding, infection, reaction to the anesthetic. If the lesion is not adequately sampled or if the findings are discordant then tissue acquisition may be necessary. CC: Amisha Rayo
--- NOTE | 2024-03-15 08:57 | P.PCN ---
Date of Procedure: 03/15/24 Preoperative Diagnosis: Microcalcifications of concern right breast Postoperative Diagnosis: same Procedure(s) Performed: Right breast stereotactic core biopsy Anesthesia: local Surgeon: Megan Hernandez Pathology: other (Breast tissue with microcalcifications) Condition: stable Disposition: same day Indications for Procedure: Microcalcifications of concern right breast Operative Findings: Core biopsy reveals microcalcifications in specimen Description of Procedure: Patient was brought to the stereotactic core biopsy room. She was positioned in the upright chair. A CC from above approach was utilized. A dynamics ax solution architect film was obtained. Microcalcifications of concern were identified in the right breast. The lesion was targeted. The calcifications were noted to be scattered and not in close proximity to each other. A group which was more compact was targeted. The breast was prepped using chlorhexidine. A cc of 1% lidocaine was used to anesthetize the breast. A 9 gauge vacuum-assisted core rotating biopsy needle was driven to the correct coordinates. A prefire film was obtained. The needle was noted to be in the correct location. The needle was fired. A post fire film was obtained. The needle was noted to be in the correct location. 14 core biopsy specimens were obtained. Radiograph of the specimen revealed calcifications. A secure thuy Top-Hat clip was deployed. The deployed clip was very superficial. A postprocedure radiograph will be obtained. The patient tolerated the procedure in stable condition. The specimen will be sent to pathology.
--- NOTE | 2024-03-19 08:56 | MM ---
Date of Procedure: 03/15/24 Preoperative Diagnosis: Microcalcifications of concern right breast Postoperative Diagnosis: same Procedure(s) Performed: Right breast stereotactic core biopsy Anesthesia: local Surgeon: Megan Hernandez Pathology: other (Breast tissue with microcalcifications) Condition: stable Disposition: same day Indications for Procedure: Microcalcifications of concern right breast Operative Findings: Core biopsy reveals microcalcifications in specimen Description of Procedure: Patient was brought to the stereotactic core biopsy room. She was positioned in the upright chair. A CC from above approach was utilized. A clinical asst film was obtained. Microcalcifications of concern were identified in the right breast. The lesion was targeted. The calcifications were noted to be scattered and not in close proximity to each other. A group which was more compact was targeted. The breast was prepped using chlorhexidine. A cc of 1% lidocaine was used to anesthetize the breast. A 9 gauge vacuum-assisted core rotating biopsy needle was driven to the correct coordinates. A prefire film was obtained. The needle was noted to be in the correct location. The needle was fired. A post fire film was obtained. The needle was noted to be in the correct location. 14 core biopsy specimens were obtained. Radiograph of the specimen revealed calcifications. A secure thuy Top-Hat clip was deployed. The deployed clip was very superficial. A postprocedure radiograph will be obtained. The patient tolerated the procedure in stable condition. The specimen will be sent to pathology. [facility]
== END ==
LOC: RADMAMWWP 07:41
PROVIDERS: ATTEND Surgery
DX: R92.8 Other abnormal and inconclusive findings on diagnostic imaging of breast (principal)
CPT/HCPCS: 88305

== ENCOUNTER → 2024-03-30 | Outpatient (CLI) | payer MEDICARE ==
[2024-03-30 11:00] VITALS: BP 160/78; PULSE 93; RESP 17; TEMP 97.9
--- NOTE | 2024-03-30 11:14 | P.PN ---
Subjective Progress Note Date: 03/30/24 Principal diagnosis: fibrocystic breast disease Alena is status post a right breast stero biopsy on 03-15-24. Her pathology was benign concordant. She tolerated the procedure without difficulty. Objective - Vital Signs Vital signs: Vital Signs Temp 97.9 F 03/30/24 10:56 Pulse 93 03/30/24 10:56 Resp 17 03/30/24 10:56 BP 160/78 03/30/24 10:56 Pulse Ox 97 03/30/24 10:56 FiO2 Intake & Output 03/29/24 03/30/24 03/30/24 18:59 06:59 18:59 Weight 61.235 kg - Constitutional General appearance: Present: cooperative - EENT Eyes: Present: EOMI ENT: Present: hearing grossly normal - Neck Neck: Present: normal ROM - Integumentary Integumentary Comment(s): Right breast biopsy site clean and dry No evidence of any hematoma or infection Integumentary: Present: normal turgor Assessment and Plan Assessment: Impression: Patient status post right breast stereotactic core biopsy 03-15-2024 felt to be benign concordant prior history of left breast intraductal papilloma High cholesterol Plan: Repeat right breast mammogram in 6 months with examination at that time Patient will follow-up sooner any questions or concerns bilateral mammogram on July 2024 CC: Dr. Mccullough
== END ==
LOC: WWCWWP 09:41
PROVIDERS: ATTEND Surgery

== ENCOUNTER → 2024-08-06 | Outpatient (CLI) | payer MEDICARE ==
--- NOTE | 2024-08-06 18:00 | MM ---
Reason for Exam: Screening (asymptomatic). Last mammogram was performed 1 year(s) and 1 month(s) ago. Patient History: Menarche at age 15. First Full-Term at age 23. Hysterectomy at age 32. Postmenopausal. Patient has history of breast feeding. Previous Hyperplasia w/o Atypia at age 77. Estrogen for 5 years from age 53 until age 59. 03/15/2024, Benign MG stereo VAD BX RT on the right side. 01/11/2023, Benign MG pre op needle loc LT on the left side. 08/02/2022, High risk MG stereo VAD BX LT on the left side. Risk Values: Kathleen 5 year model risk: 2.3%. NCI Lifetime model risk: 4.5%. Prior Study Comparison: 07/20/2022 Bilateral MG diagnostic mammo w CAD RUBY, [facility]. 08/04/2023 Bilateral MG 3D diag mammo w/cad RUBY, [facility]. 02/29/2024 Right MG 3D diag mammo w/cad RT, [facility]. Tissue Density: There are scattered areas of fibroglandular density. Findings: Analyzed By CAD. Post excisional changes on the left. Areas of asymmetric density on the right are unchanged. Superficial subdermal calcifications on the lateral aspect of the right breast are unchanged. There is no suspicious group of microcalcifications or new suspicious mass in either breast. Overall Assessment: Benign, BI-RAD 2 Management: Screening Mammogram of both breasts in 1 year. Patient should continue monthly self-breast exams. A clinical breast exam by your physician is recommended on an annual basis. This exam should not preclude additional follow-up of suspicious palpable abnormalities. Note on Kathleen scores and lifetime risk: 1. A Kathleen score greater than 3% is considered moderate risk. If this is the case, consider specialist referral to assess eligibility for a risk reducing agent. 2. If overall lifetime risk for the development of breast cancer is 20% or higher, the patient may qualify for future screening with alternating mammogram and breast MRI. [facility], , 08/06/2024 5:57 PM. Electronically signed and approved by: Feli Sidhu M.D. Radiologist
== END | disposition home or self-care (01) ==
LOC: RADMAMWWP 09:37
PROVIDERS: ATTEND Surgery
DX: Z12.31 Encounter for screening mammogram for malignant neoplasm of breast (principal); R92.323 Mammographic fibroglandular density, bilateral breasts; Z78.0 Asymptomatic menopausal state
CPT/HCPCS: 77063; 77067

== ENCOUNTER → 2024-08-10 | Outpatient (CLI) | payer MEDICARE ==
[2024-08-10 09:59] VITALS: BP 164/89; PULSE 93; RESP 16; TEMP 98.3
--- NOTE | 2024-08-10 10:10 | P.PN ---
Subjective Progress Note Date: 08/10/24 Principal diagnosis: intraductal papilloma left breast 08-10-24 Principal diagnosis: Principal diagnosis: left breast intraductal papilloma/high risk lesion abnormal right breast mammogram/ status post stero biopsy on 03-15-24/ benign concordant Alena is a 79-year-old female who underwent a left breast needle localization and resection of a lesion of concern on 08-02-2022. Initially the area was sa mpled with a stereotactic core biopsy. Upon resection the pathology revealed an intraductal papilloma with microcalcifications. The patient had a bilateral mammogram on 08-04-2023 which was BI-RADS 3. A repeat right breast mammogram in 6 months was recommended. The patient had a repeat right breast mammogram on 02-29-2024. This was personally reviewed and discussed with Dr. Durán from radiology. There were increasing microcalcifications in the right breast in the upper outer quadrant and a stereotactic core biopsy was recommended. Stero biopsy on 03-15-24 benign concordant bilateral mammogram on 08-06-24 BIRAD 2 Patient herself is not complaining of any new lumps masses or nodules of concern in either breast. Caffiene: 1 cup/day nicotine: none chocolate:daily BCP: none hormones: 5 years at menopause Family History: none cancer Hormonal History: menarche: 16 , breast fed: yes, age at first : 21 menopause: hysterectomy at 31, done for atypical cells left ovaries Surgical History: hysterectomy tonsil left breast open biopsy 2022 Medical History: high cholesterol Social History: nicotine: none alcohol: none drugs:none - Constitutional Constitutional: Denies chills, Denies fever - EENT Eyes: denies blurred vision, denies pain Ears: deny: decreased hearing, tinnitus Ears, nose, mouth and throat: Denies headache, Denies sore throat - Breasts Breasts: bilateral: as per HPI - Cardiovascular Cardiovascular: Denies chest pain, Denies shortness of breath - Respiratory Respiratory: Denies cough - Gastrointestinal Gastrointestinal: Denies abdominal pain, Denies diarrhea, Denies nausea, Denies vomiting - Genitourinary (Female) Genitourinary: Denies dysuria, Denies hematuria - Menstruation Menstruation: Reports post hysterectomy - Musculoskeletal Musculoskeletal: Denies myalgias - Integumentary Integumentary: Reports pruritus, Denies rash - Neurological Neurological: Denies numbness, Denies weakness - Psychiatric Psychiatric: Denies anxiety, Denies depression - Endocrine Endocrine: Denies fatigue, Denies weight change - Hematologic/Lymphatic Comment: none - Allergic/Immunologic Allergic/Immunologic: Reports seasonal allergies Past Medical History Past Medical History: Hyperlipidemia Additional Past Medical History / Comment(s): enviromental allergies. Left breast "cyst" removed from inner upper aspect of breast, performed in office History of Any Multi-Drug Resistant Organisms: None Reported Past Surgical History: Hysterectomy, Tonsillectomy Past Anesthesia/Blood Transfusion Reactions: No Reported Reaction Past Psychological History: No Psychological Hx Reported Smoking Status: Never smoker Past Alcohol Use History: None Reported Past Drug Use History: None Reported Medications and Allergies Home Medications Medication Instructions Recorded Confirmed Type Simvastatin [Zocor] 10 mg PO HS 07/21/22 08/27/22 History Allergies Allergy/AdvReac Type Severity Reaction Status Date / Time No Known Allergies Allergy Verified 08/27/22 13:30 Objective - Constitutional General appearance: Present: cooperative - EENT Eyes: Present: EOMI ENT: Present: hearing grossly normal - Neck Neck: Present: normal ROM - Respiratory Respiratory: bilateral: CTA - Cardiovascular Rhythm: regular Heart sounds: normal: S1, S2 - Integumentary Integumentary: Present: normal turgor - Musculoskeletal Musculoskeletal: Present: gait normal - Psychiatric Psychiatric: Present: A&O x's 3, appropriate affect, intact judgment & insight - Additional findings Additional findings: Breast Exam: BRA: 32B Inspection: Bilateral grade 2 ptosis Palpation: Bypass: Multi positional exam fibrocystic changes no dominant masses or nodules of concern Right axilla: No adenopathy of concern Left breast: Multi-positional exam fibrocystic changes; well healed scar left breast Left axilla: No adenopathy of concern Assessment and Plan Assessment: Impression: Stereotactic core biopsy left breast intraductal papilloma; resection 01-11-23 Fibrocystic breast changes High cholesterol bilateral mammogram 08-04-23 BIRAD 3; repeat right breast mammogram in 6 months, repeat right breast mammogram 02-29-2024 revealed increasing numbers of small round calcifications upper outer quadrant right breast this was considered suspicious BI-RADS 4 and recommended for a stereotactic core biopsy this was personally reviewed and discussed with the radiologist WILMA Bailon; benign concordant bilateral mammogram on 08-06-24 BIRAD 2 Plan: bilateral mammogram August 2025 with appointment follow up sooner any concerns CC: Amisha Rayo
== END ==
LOC: WWCWWP 09:24
PROVIDERS: ATTEND Surgery
DX: D24.2 Benign neoplasm of left breast (principal); N60.19 Diffuse cystic mastopathy of unspecified breast; E78.5 Hyperlipidemia, unspecified; R92.8 Other abnormal and inconclusive findings on diagnostic imaging of breast; Z91.09 Other allergy status, other than to drugs and biological substances